=== PATIENT | female | born 1970 | race Caucasian/White ===

== ENCOUNTER 2018-05-09 06:00 | Day surgery (SDC) | payer OTHER ==
[2018-05-09] MEDS ORDERED: MACROBID 100 M100 MG PO (08:43)
[2018-05-09] MEDS ORDERED: ULTRACET PO (08:44)
== END 2018-05-09 13:30 | disposition home or self-care (01) ==
LOC: CIR.AMB 06:00 → EDBD 11:30 → CIR.AMB 13:30
DX: N39.3 Stress incontinence (female) (male) (principal)
CPT/HCPCS: 57288; C1771